=== PATIENT | male | born 1975 | race Caucasian/White ===

== ENCOUNTER 2019-12-01 11:17 | Emergency (ER) | payer MEDICAID ==
[~2019-12-01] VITALS: Ht 190.5 cm; Wt 109.0 kg
[2019-12-01] MEDS ORDERED: HYDROcodone/acetaminophen 5mg/325mg tablet PO ONE (11:50)
[2019-12-01] MEDS ORDERED: LIDOcaine 1% 30ml preserv. free vial SQ STA (12:25)
[2019-12-01] MEDS ORDERED: IBUP-1985 PO (12:54)
[2019-12-01] MEDS ORDERED: HYDR-3965 PO (12:54)
== END 2019-12-01 13:57 | disposition home or self-care (01) ==
LOC: ER 11:18
DX: M25.562 Pain in left knee (principal); J45.909 Unspecified asthma, uncomplicated; E11.9 Type 2 diabetes mellitus without complications; F43.10 Post-traumatic stress disorder, unspecified; Z79.899 Other long term (current) drug therapy
CPT/HCPCS: 20611; 73560; 99284